=== PATIENT | female | born 1940 | race Caucasian/White ===

== ENCOUNTER 2016-06-16 22:24 | Inpatient (IN) | payer MEDICARE, OTHER ==
--- NOTE | ~2016-06-16 | HP ---
History And Physical [facility] [address] [place]. [address] NAME: REZA MALAGON : 40 STATUS : ADM IN [facility]#: [id number] AGE: 75 ADM/REG DATE : 06/17/16 MR#: [id number] REPORT SERV DATE: 06/17/16 DICTATED BY: EVAN CHRISTOPHER DATE: 06/17/16 REPORT STATUS : Draft TRANSCRIBED BY: MODMark DATE: 06/17/16 DATE OF ADMISSION: 06/17/2016 POINT OF ENTRY: [facility] Emergency Department. PRIMARY CARE PHYSICIAN: Dr. Jerardo Giron. PRIMARY RESAW OPERATOR: Dr. Amos Karimi. CHIEF COMPLAINT: Chest pain. HISTORY OF PRESENT ILLNESS: Ms. Malagon is a 75-year-old female with a very complex previous medical history including COPD, on 2 L by nasal cannula, chronic systolic congestive heart failure, ejection fraction of 35%, chronic kidney stage III, history of aspiration and dysphagia, secondary to head and neck cancer, now with GJ tube who presents here today with acute onset of chest pain. Son who is at bedside provides most of history. Son states that at about 7 p.m. on the evening of 06/16/2016, she developed acute onset of left-sided chest pain. He states that that she grabbed her left chest in a fist-like manner and was also complaining of shortness of breath. When asked to describe the pain, she states it felt like a pressure and someone sitting on her chest. She states that it had reached the intensity of eight out of 10 and they subsequently presented to the emergency department. Son also states a few episodes of upper congestion, cough and sputum production about five to six days ago, but none recently. They deny any recent fevers, night sweats, or chills. Denies any witnessed recent aspiration events. Initial evaluation in the emergency department, the patient was afebrile, but somewhat mildly tachycardic. Chest x-ray is concerning for diffuse right-sided interstitial- appearing infiltrate. Labs notable for a troponin that was unremarkable. EKG is also nonischemic. BNP was within normal limits at 95. She does have evidence of dehydration with a BUN of 86, creatinine 2.14. She was given aspirin, nitroglycerin, and Zofran with some improvement in her chest pain; however, she continues to state that her chest pain is still a six to seven out of 10 at time my examination. The patient was subsequently admitted to the Hospitalist Service for further evaluation and management. At the time of my exam, she endorses chest pain which is diffusely over the precordium as well as some epigastric abdominal pain, but denies any shortness of breath, radiation of her chest pain, fevers, night sweats, chills, cough, sputum production, vomiting, diarrhea, constipation, dysuria, melena, hematochezia, or hemoptysis. Does endorse some mild nausea. REVIEW OF SYSTEMS: Comprehensive review of systems is otherwise negative unless listed in history present illness. History And Physical [address] [place]. [address] NAME: REZA MALAGON : 40 STATUS : ADM IN [facility]#: [id number] AGE: 75 ADM/REG DATE : 06/17/16 MR#: [id number] REPORT SERV DATE: 06/17/16 DICTATED BY: EVAN CHRISTOPHER DATE: 06/17/16 REPORT STATUS : Draft TRANSCRIBED BY: ABDIFATAH DATE: 06/17/16 MEDICAL HISTORY: 1. Chronic systolic congestive heart failure with ejection fraction of 35%. 2. Nonischemic cardiomyopathy. 3. Atrial fibrillation, not on anticoagulation. 4. COPD, on 2 L nasal cannula. 5. Dysphagia and aspiration risk with GJ tube and strict n.p.o. Status. 6. Chronic kidney stage III. 7. Dementia. 8. Hypothyroidism. 9. History of recurrent C. 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 11.AICD pacemaker insertion. 12.Previous history of aspiration pneumonia. 13.Chronic thrombocytopenia. SURGICAL HISTORY: 1. GJ tube with multiple revisions and replacements for malfunction and occlusion. 2. AICD pacemaker. 3. Tubal ligation. ALLERGIES: RELAFEN. HOME MEDICATIONS: 1. DuoNeb one nebulization b.i.d. 2. DuoNeb one nebulization p.r.n. 3. Brovana 15 mcg b.i.d. 4. Aspirin 325 mg daily. 5. Pulmicort 0.5 mg b.i.d. 6. Carvedilol 3.125 mg b.i.d. 7. Pepcid 20 mg b.i.d. 8. Gabapentin 100 mg b.i.d. 9. Isosorbide dinitrate 10 mg b.i.d. 10.Claritin 10 mg daily. 11.Losartan 25 mg daily. 12.Namenda 10 mg b.i.d. 13.Nystatin t.i.d. p.r.n. 14.MiraLAX one packet daily p.r.n. 15.Pravastatin 20 mg at bedtime. 16.Seroquel 12.5 mg daily. 17.Exelon patch 13.3 mg daily. 18.Zoloft 50 mg daily. 19.Byers thyroid 90 mg daily. 20.Spiriva one cap inhalation daily. 21.Demadex 5 mg every 48 hours. 22.Tramadol 50 mg at bedtime. 23.Tramadol 50 mg daily p.r.n. 24.N-acetylcysteine nebulization b.i.d. p.r.n. History And Physical [address] [address] NAME: REZA MALAGON : 40 STATUS : ADM IN PAT#: [id number] AGE: 75 ADM/REG DATE : 06/17/16 MR#: [id number] REPORT SERV DATE: 06/17/16 DICTATED BY: EVAN CHRISTOPHER DATE: 06/17/16 REPORT STATUS : Draft TRANSCRIBED BY: ABDIFATAH DATE: 06/17/16 SOCIAL HISTORY: Denies any tobacco, alcohol, or illicits. FAMILY MEDICAL HISTORY: Mother with diabetes. Father with cancer. Siblings with diabetes. LABS AND IMAGIN. White count is 10.4, hemoglobin is 10.8, hematocrit is 32.9, platelets is 245, INR is 1.2. 2. Sodium is 135, potassium 4.5, chloride 98, carbon dioxide 33, BUN 86, creatinine 2.14, glucose is 86, calcium is 9.5, magnesium 2.3. 3. Troponin less than 0.02. BNP is 95. 4. Lactic acid 1.1, procalcitonin 0.20. 5. Chest x-ray per my review shows some mild cardiomegaly. The left chest appears to be clear. Does have some left greater than right very mild pleural effusions. Right lung abdi show a diffuse interstitial fullness concerning for diffuse infiltrate. 6. EKG per my review shows sinus tachycardia, heart rate of 102. No evidence of any acute ischemic infarction. Does show some left axis deviation and some mild LVH-type changes. PHYSICAL EXAMINATION: VITAL SIGNS: Temperature is 98.0 degrees Fahrenheit, pulse is 94, respirations 16, saturating 96% on 4 L by nasal cannula, blood pressure 130/74, on recheck blood pressure is now 135/65, pulse of 94. GENERAL: Patient is awake, alert, in no acute distress. She is a chronically ill-appearing elderly female. Son is at bedside. HEENT: Atraumatic and normocephalic. Moist mucous membranes. Pupils are equal, round, reactive to light and accommodation. Extraocular eye movements intact. No scleral icterus. NECK: No jugular venous distention. No carotid bruits. CARDIAC: Regular rate and rhythm. Does have a two out of six systolic murmur heard best over left lower sternal border. LUNGS: She has diffuse upper airway transmitted sounds, but I do appreciate some mild inspiratory rhonchi and rales on the right side. Left appears to be clear. ABDOMEN: GJ tube is in place and well-seated. Hypoactive bowel sounds throughout. No rebound, guarding, rigidity. Nontender, nondistended. EXTREMITIES: Warm, perfused. No cyanosis, clubbing, or edema. SKIN: Warm and dry. PSYCH: Affect appropriate. NEURO: Alert and oriented x3. Cranial nerves II through XII grossly intact. Speech is normal. Gait not assessed. ASSESSMENT AND PLAN: Ms. Malagon is a 75-year-old female who presents with the acute onset of chest pain concerning for unstable angina. The patient also found to have evidence of acute kidney injury as well as concern for right-sided pneumonia. PROBLEM LIST: 1. Unstable angina, chest pain. 2. Acute kidney injury on chronic kidney stage III. History And Physical [address] [place]. [address] NAME: REZA MALAGON : 40 STATUS : ADM IN [facility]#: [id number] AGE: 75 ADM/REG DATE : 06/17/16 MR#: [id number] REPORT SERV DATE: 06/17/16 DICTATED BY: EVAN CHRISTOPHER DATE: 06/17/16 REPORT STATUS : Draft TRANSCRIBED BY: ABDIFATAH DATE: 06/17/16 3. Possible right-sided pneumonia. 4. History of dysphagia and aspiration. 5. Chronic systolic congestive heart failure. 6. COPD, on 2 L by nasal cannula. PLAN: 1. Unstable angina and chest pain. The patient and son describe a left-sided chest pain described as pressure and someone sitting on her chest. Son used the classic Hollingsworth sign to describe how she reacted when it first came on. Despite aspirin and nitroglycerin, patient still is having significant chest pain. We will continue patient's home aspirin, beta charissa, and statin. Trend out cardiac enzymes as well as EKG. Given persistent pain, we will order q.6 hours p.r.n. nitroglycerin paste as well as place her on a heparin drip and have a stress test in the morning. We will also consult Cardiology for assistance. 2. Acute kidney injury on chronic kidney stage III. Holding the patient's diuretic and ARB. Provide IV fluid hydration. Checking urine lytes. 3. Possible right-sided pneumonia. Follow up formal radiology read of the chest x-ray. We will schedule her for a CT of the chest without IV contrast to better visualize the right lung abdi, empiric placement on IV Zosyn given history of aspiration and dysphagia. Follow up blood cultures, try to obtain sputum culture as well as urinary antigens. 4. History of COPD, on 2 L by nasal cannula. No evidence of any acute exacerbation at this time. 5. History of aspiration and dysphagia. She is strict nothing by mouth. They deny any recent aspiration events. We will continue patient's tube feeds and free water flushes per her G-tube. 6. DVT prophylaxis. To be on heparin drip. CODE STATUS: The patient wishes to be a limited DNR. She does not wish to have chest compressions or intubation, but is amenable with ICU admission for other advanced life support measures. [facility]/ABDIFATAH Evan Christopher MD / [id number] CC: Abilio Diaz M.D.
--- NOTE | ~2016-06-16 | CN ---
Consultation Report [facility] [address] [place]. [address] NAME: REZA MALAGON : 40 STATUS : ADM IN [facility]#: [id number] AGE: 75 ADM/REG DATE : 06/17/16 MR#: [id number] REPORT SERV DATE: 06/17/16 DICTATED BY: STEVEN JONES DATE: 06/17/16 REPORT STATUS : Draft TRANSCRIBED BY: ABDIFATAH DATE: 06/17/16 CARDIOLOGY CONSULTATION NOTE DATE OF CONSULTATION: 06/17/2016 REASON FOR CONSULTATION: Chest pain of acute onset in a 75-year-old woman with nonischemic cardiomyopathy and multiple medical problems. HISTORY OF PRESENT ILLNESS: Ms. Malagon is a medically complicated 75-year-old woman with a history of oxygen-dependent COPD versus possible interstitial lung disease, chronic systolic heart failure with a baseline ejection fraction of 35% to 40%, stage 3 chronic kidney disease, history of neck cancer complicated by chronic aspiration and dysphagia, and status post percutaneous gastrojejunostomy tube. The patient was admitted early this morning after experiencing the abrupt onset of substernal pressure-type chest pain at around 07:00 p.m. yesterday. The patient describes this as a heavy pressure. She had the onset of cough around the same time, though this has been nonproductive. The patient denies fevers. She reports her cough is nonproductive. She has chronic dyspnea, and reports that her dyspnea is no worse than it usually is. She denies orthopnea. At this time, the patient reports her chest pain has resolved. PAST MEDICAL HISTORY: 1. Chronic systolic heart failure with baseline ejection fraction of 35% to 40%. 2. Nonischemic cardiomyopathy with no significant occlusive coronary artery disease by cardiac catheterization in the year 2011. 3. Paroxysmal atrial fibrillation. 4. Chronic obstructive pulmonary disease, on chronic oxygen 2 L nasal cannula. 5. Chronic dysphagia and aspiration. 6. Stage 3 chronic kidney disease. 7. Dementia. 8. Hypothyroidism. 9. History of recurrent Clostridium difficile colitis. 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 11.Status post AICD. 12.History of multiple previous aspiration pneumonias. 13.Chronic thrombocytopenia. PAST SURGICAL HISTORY: 1. The patient is status post placement of an AICD. 2. GJ tube placement with multiple revisions and replacements due to malfunction. 3. Bilateral tubal ligation. 4. Previous surgery for head and neck cancer. FAMILY HISTORY: Positive for diabetes. The patient's father had cancer, not otherwise Consultation Report [facility] [id number] [place]. [address] NAME: REZA MALAGON : 40 STATUS : ADM IN PAT#: [id number] AGE: 75 ADM/REG DATE : 06/17/16 MR#: [id number] REPORT SERV DATE: 06/17/16 DICTATED BY: STEVEN JONES DATE: 06/17/16 REPORT STATUS : Draft TRANSCRIBED BY: ABDIFATAH DATE: 06/17/16 specified. Otherwise, noncontributory. SOCIAL HISTORY: The patient denies any significant history of tobacco, alcohol, or drug use. ALLERGIES: THE PATIENT HAS DOCUMENTED ALLERGIES TO RELAFEN, WHICH CAUSED HIVES AND ITCHING. HOME MEDICATIONS: 1. DuoNeb inhalers one nebulizer twice daily. 2. Brovana one nebulizer twice daily. 3. Aspirin 325 mg p.o. q.a.m. 4. Pulmicort 0.5 mg inhaled twice daily. 5. Carvedilol 3.125 mg p.o. twice daily. 6. Pepcid 20 mg p.o. twice daily. 7. Gabapentin 100 mg p.o. twice daily. 8. Isosorbide dinitrate 10 mg p.o. twice daily. 9. Claritin 10 mg p.o. daily as needed. 10.Cozaar 25 mg p.o. q.p.m. 11.Namenda 10 mg p.o. twice daily. 12.Nystatin cream apply under breast three times daily as needed. 13.MiraLAX 17 g p.o. daily as needed. 14.Pravastatin 20 mg p.o. at bedtime. 15.Seroquel 12.5 mg p.o. with supper. 16.Exelon patches 13.3 mg topically daily. 17.Sertraline 50 mg p.o. at bedtime. 18.Rodney thyroid supplement 90 mg p.o. daily. 19.Spiriva HandiHaler one capsule inhaled daily. 20.Torsemide 5 mg p.o. q.48 hours. 21.Ultram 50 mg p.o. at bedtime. 22.Ultram 50 mg daily as needed for pain. 23.N-acetylcysteine nebulizers twice daily as needed. REVIEW OF SYSTEMS: A complete 12-system review was performed. This is noncontributory except for the pertinent positives and negatives noted in the history of present illness above. PHYSICAL EXAMINATION: VITAL SIGNS: Temperature is 97.7 degrees Fahrenheit, blood pressure is 130/71 mmHg, heart rate is 100 beats per minute and regular, respirations 20, oxygen saturation is 97% on 2 L nasal cannula. CONSTITUTIONAL: The patient is a chronically ill-appearing, elderly white woman, who is in no acute distress, though she is very mildly tachypneic. EYES: PERRL, EOMI, clear conjunctiva. HEAD/MNT: NCAT with moist mucous membranes and grossly normal hard and soft palate. NECK: Supple with no obvious thyromegaly or lymphadenopathy CARDIOVASCULAR: Somewhat limited exam due to respiratory noise. There is a regular rhythm Consultation Report [address] [place]. [address] NAME: REZA MALAGON : 40 STATUS : ADM IN [facility]#: [id number] AGE: 75 ADM/REG DATE : 06/17/16 MR#: [id number] REPORT SERV DATE: 06/17/16 DICTATED BY: STEVEN JONES DATE: 06/17/16 REPORT STATUS : Draft TRANSCRIBED BY: ABDIFATAH DATE: 06/17/16 with a normal S1 and a physiologically split second heart sound. No significant murmurs, rubs, or gallops are noted. The jugular venous pressure is normal. PULMONARY: There are diffuse rhonchi noted throughout the lung abdi bilaterally. There is no significant expiratory wheezing noted at this time. There is no dullness to percussion. ABDOMINAL: Soft, non-tender, non-distended with no hepatosplenomegaly noted. EXTREMITIES: There is trace chronic edema at the ankles with no clubbing or cyanosis. MUSCULOSKELETAL: Grossly normal strength and range of motion in all extremities INTEGUMENTARY: Skin appears intact with no bruises, wounds or active lesions noted NEURO/PSYC: Alert and oriented x3, with no dysarthria, facial droop or lateralizing weakness noted. 12-LEAD EKG: The 12-lead EKG shows normal sinus rhythm with a rate of 99 beats per minute. There is a slight nonspecific intraventricular conduction delay with no significant ST- segment elevation or depression. There are occasional premature ventricular complexes noted. CHEST X-RAY: The chest x-ray shows diffuse infiltrates versus interstitial lung disease. LABORATORY DATA: A B-type natriuretic peptide is normal at 94. Troponin I is less than 0.02 x2 with a total CK of 43 and an MB fraction of 1.2. CBC shows a white blood cell count of 10.3, hemoglobin 11, hematocrit 33, platelets 115. Sodium is 138, potassium 4.2, chloride is 100, CO2 is 32, BUN is 81 and creatinine is 2.09, calcium 9.5, glucose 86, albumin is 2.7. ASSESSMENT AND PLAN: 1. Chest pain: The patient's symptoms are most probably due to a recent aspiration event. Her BNP is normal, her EKG is unremarkable, and myocardial infarction has been ruled out. The patient has had a cardiac catheterization in the year 2011 showing no significant occlusive coronary artery disease. A myocardial perfusion imaging study has been ordered. This is pending at this time. Assuming the patient's myocardial perfusion imaging study is low risk or shows no significant amount of ischemia, I would recommend no further cardiac workup aside from ongoing management of the patient's chronic systolic heart failure as outlined below. 2. Chronic systolic heart failure: The patient's BNP is normal. She has diffuse rhonchi on pulmonary exam, though it is my opinion this is most likely due to an aspiration event. The patient is receiving IV normal saline volume repletion. This should be continued cautiously, though the patient's severely elevated BUN and creatinine ratio is consistent with intravascular volume depletion. We will resume IV fluids. The patient will continue her home doses of carvedilol and losartan. 3. Code status: The patient is apparently DNR/DNI status, though she is willing to accept any other medical therapy and other life prolonging measures. 4. Status post AICD: The device was last interrogated by remote monitoring on 07/10/2015. Consider repeat interrogation if any device dysfunction is suspected. At the time of the patient's last device interrogation, there was 7.5 years of remaining battery life. Consultation Report [facility] [address] [place]. [address] NAME: REZA MALAGON : 40 STATUS : ADM IN [facility]#: [id number] AGE: 75 ADM/REG DATE : 06/17/16 MR#: [id number] REPORT SERV DATE: 06/17/16 DICTATED BY: STEVEN JONES DATE: 06/17/16 REPORT STATUS : Draft TRANSCRIBED BY: ABDIFATAH DATE: 06/17/16 Interrogation revealed occasional episodes of nonsustained ventricular tachycardia and occasional atrial high rate episodes. Thank you for allowing me to participate in the care of Ms. Malagon. The Cardiology Service will continue to follow the patient during this hospitalization. [facility]/ABDIFATAH Steven Jones MD / [id number] CC: Abilio Ramos M.D.
--- NOTE | ~2016-06-16 | DS ---
Discharge Summary [facility] [address] [place]. [address] NAME: REZA RAGLAND : 40 STATUS : DIS IN PAT#: [id number] AGE: 75 ADM/REG DATE : 06/17/16 MR#: [id number] REPORT SERV DATE: 06/24/16 DICTATED BY: MARS DANIELS DATE: 06/23/16 REPORT STATUS : Draft TRANSCRIBED BY: MODMark DATE: 06/23/16 ADMISSION DATE: 06/17/2016 DISCHARGE DATE: 06/23/2016 CONDITION ON DISCHARGE: Stable. DISPOSITION: Discharged to home with home health nurse, home PT, and OT. ADVICE ON DISCHARGE: To follow up with primary care physician within the next one to two weeks and to follow up with primary electrical appliance servicer, Dr. Amos Karimi, as scheduled before. DIAGNOSES ON DISCHARGE: 1. Aspiration pneumonia - the patient has been treated with intravenous antibiotics for seven days and now the patient is being sent home after aspiration pneumonia has been treated and is on no antibiotics currently. 2. Other complex medical issues in this patient include multiple and many comorbidities and these include the following chronic systolic and diastolic heart failure with an ejection fraction of 35%. 3. Chronic kidney disease, stage III. 4. Chronic obstructive pulmonary disease. 5. Chronic hypoxic respiratory failure for which patient is on 2 L of oxygen per nasal cannula. 6. History of aspiration and dysphagia secondary to head and neck cancer for which patient has had a G-tube placement or a PEG placement for medicines administration and also a J- tube or a G-J tube for nutrition purposes through which she receives tube feeds. The patient does not take anything by mouth for now. 7. Other chronic problems in this patient also include moderate dementia, psychotic features, and extreme anxiety with dementia for which patient takes Seroquel on a p.r.n. basis and sometimes a very low dose of Ativan on a p.r.n. basis administered by her through the G-tube. The family takes care of this patient at home and code status on this patient is a DNR for now. BRIEF HOSPITAL COURSE: The patient is a 75-year-old female patient with multiple medical issues and comorbidities cared for by family at home. The patient is essentially bed-bound and however with help of family she is able to transfer herself on to a wheelchair with the help of a lift. Otherwise, the patient is not independent with activities of daily living at all. She also has a G-tube and a J-tube placed. Family gives her medicines through her gastrostomy tube, and she gets tube feeds through her jejunostomy tube. The patient essentially was admitted because of chest pain and difficulty breathing. Cardiology was consulted. The patient did have mild elevation in troponin, probably because of demand ischemia upon admission. The patient essentially was treated for exacerbation of systolic and diastolic failure with increase in her diuretics but no further cardiology intervention was planned per Cardiology, Dr. Jones. This eventually resolved and it was Discharge Summary [facility] [id number] [place]. [address] NAME: REZA RAGLAND : 40 STATUS : DIS IN PAT#: [id number] AGE: 75 ADM/REG DATE : 06/17/16 MR#: [id number] REPORT SERV DATE: 06/24/16 DICTATED BY: MARS DANIELS DATE: 06/23/16 REPORT STATUS : Draft TRANSCRIBED BY: ABDIFATAH DATE: 06/23/16 deemed that the patient actually had aspiration pneumonia rather than heart failure. From the get go, she has been started on antibiotics to cover for these including IV Flagyl, vancomycin, and cefepime. She has received these antibiotics for seven days now and the patient is breathing much better and her oxygen requirements are down to her baseline of 2 L/minute. The patient continues to have some rattling in her chest/coarse rales in her chest all the time according to family and continues to have this all through. We have encouraged the patient to cough multiple times. The patient does well with chest therapy and is able to bring up some. Family also has a suctioning equipment and device at home with which they are able to suction patient periodically. With this, the patient's fluid in the lungs is kept at bay. The patient also has a history of chronic atrial fibrillation apparently but is not on anticoagulation. She however continues to be on aspirin. 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 Has also had recurrent aspiration pneumonia in the past. Anyhow with all these problems, the patient significantly improved while in the hospital within a week. Her mental status, which was obtunded, and then later on, confused became much better and the patient is alert and oriented within the last two to three days and is able to be communicating very effectively. The patient is also able to transfer herself with some assistance on to a chair and feels much better and hence is being discharged home today. I am discharging her home on the following medications. First of all, she will be resuming her home medications that will include acetylcysteine by nebulizer treatment twice a day p.r.n., Spiriva inhaler once a day, Coreg 3.125 mg p.o. b.i.d., Neurontin 100 mg p.o. b.i.d., nystatin cream, polyethylene glycol powder once a day as needed, Demodex 5 mg p.o. every two days, Exelon patch 13.3 mg patch topically daily, Seroquel 12.5 mg p.o. daily, Ultram 50 mg p.o. once a day daily, pravastatin 20 mg once at bedtime daily, Zoloft 50 mg p.o. with supper, memantine or Namenda 10 mg p.o. b.i.d., aspirin 325 mg p.o. daily, DuoNeb inhaled solution one nebulizer treatment twice daily as needed, Brovana one nebulizer inhalation twice a day, Pulmicort 0.5 mg inhalation twice a day, Pepcid 20 mg p.o. b.i.d., Keno Thyroid 90 mg p.o. daily, Claritin 10 mg p.o. daily, Ativan 0.25-0.5 mg p.o. once a day p.r.n. for anxiety, and Proctozone HC 2.5% cream rectally for hemorrhoids. It is to be noted that all the medications above that I have dictated as p.o. should be given through gastrostomy tube and family is very well aware of this and they have done this for several years now. Relevant labs upon discharge include the following: CBC on 06/23/2016 shows a WBC count of 5.9, hemoglobin 10.2, hematocrit 30.9, and platelet count of 163. Electrolyte profile shows sodium 141, potassium 4.7, BUN 62, and creatinine at baseline of about 1.5. The patient's jejunostomy tube which was displaced has again been replaced. According to the son, this jejunostomy tube gets displaced about every three to four weeks and has to be replaced about three to four weeks. So right at her third week it was displaced again and Interventional Radiology was kind enough to replace it. Other tests are blood cultures that came back negative with no growth in four days. Discharge Summary [facility] [address] [place]. [address] NAME: REZA RAGLAND : 40 STATUS : DIS IN PAT#: [id number] AGE: 75 ADM/REG DATE : 06/17/16 MR#: [id number] REPORT SERV DATE: 06/24/16 DICTATED BY: MARS DANIELS DATE: 06/23/16 REPORT STATUS : Draft TRANSCRIBED BY: ABDIFATAH DATE: 06/23/16 Her most recent chest x-ray that was done on 06/20/2016 shows bibasilar atelectasis and infiltrates that have mildly improved from the previous study. Her BNP is constantly elevated, but her baseline is about 258, and I guess this is where she stays mostly. As mentioned above, the patient also had a chest CT scan without contrast that showed in the beginning atelectasis and consolidation in both posterior lung bases, cardiomegaly, AICD in place. All this probably from the patient's aspiration itself. Upon admission, her urinalysis was sent off with reflex culture that did show large leukocyte esterase, but as the patient has been treated with antibiotics, this should have cleared up. Right now her urine is pretty clear. As mentioned above, the patient did have a troponin test done too but that came back normal eventually and was less than 0.02 with normal CPK and normal CK-MB. Hence, the patient is being sent home in stable condition with above medications and diagnosis and I have spent about 40 minute in summarizing this discharge including face-to- face encounter. JOHANN/ABDIFATAH Mars Daniels M.D. / [id number] CC: Abilio Ramos M.D.
[~2016-06-16 22:24] MED LIST: ACETYLCYSTEINE 20% INH; ACIPHEX PO; ANTIBIOTIC; APRES10B PEG; APRES10B PO; ARMOUR THYRO30 MG PEG; ARMOUR THYRO30 MG PO; ARMOUR THYRO60 MG PO; ARMOUR THYRO90 MG PEG; ASA5GR PEG; ASAB PEG; ASAB PO; ASAEC PEG; AUG875 PO; AUGMENTIN200 MG/5 M PEG; BACTROINT; BACTROINT TOP; BACTRONASA NAS; BARRIER CREAM TOP; BP MED #1; BP MEDICATION; BROVANA15 MCG INH; CALMOSEPTINE O2.5 OZ TOP; CAT1 PO; CLARIT10 PEG; CLEOCIN300 MG PEG; COREG12 PEG; COREG12 PO; COREG3 PEG; COREG3 PO; COREG6 PO; CORTEF20 MG PEG; CORTEF5 PEG; CORTEF5 PO; COZ25 PEG; COZ25 PO; COZ50 PO; CYANO1000T PEG; D.O.S.100 MG; DEMA10T PEG; DEMA10T PO; DEMADEX5 MG PEG; DUONEB INH; DURA25 TOP; ELIQUIS 2.5 MG2.5 MG PEG; ELIQUIS 2.5 MG2.5 MG PO; ELIQUIS 5 MG TAB5 MG PO; EXELON1 EACH TOP; EXELON4.6T TOP; FLAG500TAB PO; FLORASTOR250 MG PEG; GGEXPUD PEG; GGEXPUD PO; ISORDIL10 PEG; ISORDIL10 PO; K250 PO; K500 PO; LEVAQUIN5T PO; LEVAQUIN750 MG PEG; LEVAQUIN750 MG PO; LISINOPRIL; LORTABLIQ PEG; LOTRIMIN AF12 TOP; MACRO50B PEG; MACRO50B PO; MACROBID PO; MEG40 PO; MIRALAX POWDER1 PKT PEG; MIRALAX POWDER1 PKT PO; MUCINEX LIQUID PEG; MUCO20%4ML INH; MUCOMYST 20% INH; MYCOSCROI TOP; NAMENDA10 MG PEG; NAMENDA10 MG PO; NAMENXR28 PO; NEO-OINT; NEO-OINT TOP; NEUR100 PEG; NEXIUM40 MG PEG; NEXIUM40 MG PO; NEXIUM40 PO; NYSTATPOW TOP; NYSTOP100000 MG TOP; P10; P10 PEG; PEP20 PEG; PR25 PEG; PRAVAC PEG; PREPARATIO H PR; PRIN2.5 PEG; PULRESP.5 INH; REG5 PO; SEROQUEL25 PEG; SEROQUEL25 PO; SPIRIVA INH; STERAPRED5 MG PO; SYMBICORT 160/41 INH INH; TESS PO; THYROID MED; ULTRAM50 PEG; ULTRAM50 PO; VANC125UDL PO; VANCOCIN HCL250 MG PEG; VANCOCIN HCL250 MG PO; VIT B 12; VIT D 3 PO; VITAMIN B-121000 MC1 SL; WELCHOL 625 MG625 MG PEG; WELCHOL 625 MG625 MG PO; ZESTRIL2.5 MG PEG; ZOFRAN PO; ZOFRAN4 PEG; ZOFRAN4 PO; ZOL50 PEG; ZOLOFT25 MG PEG; [UNRECOGNIZED DRUG - OTHER]; [UNRECOGNIZED DRUG - OTHER] MT; [UNRECOGNIZED DRUG - OTHER] PO; [UNRECOGNIZED DRUG - OTHER] PO; [UNRECOGNIZED DRUG - SUPPLY] TOP
[2016-06-16 23:37] LABS: BASOPHILS 0.2 %; BASOPHILS ABSOLUTE 0.02 10/3/uL (0.0-0.16); EOSINOPHILS 1.1 %; EOSINOPHILS ABSOLUTE 0.11 10/3/uL (0.0-0.53); IMMATURE GRANULOCYTES 0.3 %; IMMATURE GRANULOCYTES ABSOLUTE 0.03 10/3/uL (0.0-0.11); LYMPHOCYTES 20.8 %; LYMPHOCYTES ABSOLUTE 2.17 10/3/uL (0.67-4.30); MEAN CORPUS HGB CONC 32.8 g/dL (32.0-36.0); MEAN CORPUSCULAR HEMOGLOB 29.4 pg (26.0-34.0); MONOCYTES 7.3 %; MONOCYTES ABSOLUTE 0.76 10/3/uL (0.21-1.20); NEUTROPHILS 70.3 %; NEUTROPHILS ABSOLUTE 7.34 10/3/uL (2.02-8.40); RBC DISTRIBUTION WIDTH 14.9 % (12.0-16.0)
[2016-06-16 23:38] LABS: ER CBC TAT 0 Hrs 10 Mins; HEMATOCRIT 32.9 % (36.0-48.0); HEMOGLOBIN 10.8 g/dL (12.0-16.0); MANUAL DIFF NO %; MEAN CORPUSCULAR VOLUME 89.6 fL (80-100); PLATELET COUNT 245 10/3/uL (150-400); RED CELL COUNT 3.67 10/6/uL (4.0-5.6); WHITE BLOOD CELLS 10.4 10/3/uL (4.5-10.5)
[2016-06-16 23:41] LABS: INTERNATIONAL NORMAL RATI 1.2 UNITS (-); PARTIAL THROMBO TIME 34.3 SEC (22.5-37.2); PROTIME (NOT ORD) 15.4 SEC (12.0-14.5)
[2016-06-16 23:49] LABS: CHEST PAIN PROFILE TAT 0 Hrs 21 Mins; POTASSIUM, SERUM 4.5 MMOL/L (3.5-5.3); TROPONIN I <0.02 NG/ML (<0.05)
[2016-06-16 23:52] LABS: BUN (BLOOD UREA NITROGEN) 86 MG/DL (6-23); CALCIUM, SERUM 9.5 MG/DL (8.5-10.4); CHLORIDE, SERUM 98 MMOL/L (96-112); CO2 (CARBON DIOXIDE) 33 MMOL/L (24-34); CREATININE 2.14 MG/DL (0.55-1.02); GFR AFRICAN AMERICAN 25 ML/MIN (>=60); GFR NON AFRICAN AMERICAN 22 ML/MIN (>=60); GLUCOSE, SERUM 86 MG/DL (60-99); SODIUM, SERUM 135 MMOL/L (135-148)
[2016-06-16 23:55] LABS: EOSINOPHILS 1 %; ER DIFF TAT 0 Hrs 27 Mins; LYMPHOCYTES 17 %; LYMPHOCYTES ABSOLUTE (CALC) 1.77 10/3/uL (0.67-4.30); MONOCYTES 4 %; MONOCYTES ABSOLUTE (CALC) 0.42 10/3/uL (0.21-1.20); NEUTROPHILS ABSOLUTE (CALC) 8.11 10/3/uL (2.02-8.40); SEGMENTED NEUTROPHIL (0) 78 %; TOTAL NUCLEATED CELLS 100
[2016-06-16 23:56] LABS: PLATELET ESTIMATE ADQ (ADEQUATE)
[2016-06-17 04:21] LABS: ASCORBIC ACID (UR NOT ORDER) 40 (NEG); BILIRUBIN, URINE NEGATIVE (NEG); ER URINALYSIS TAT 0 Hrs 00 Mins; KETONE, URINE NEGATIVE (NEG); LEUKOCYTE ESTERASE(NOT OR LARGE (NEG); NITRITE (URINE) NEG (NEG); WBC (NOT ORDERED) (RFLEX) 167 (0-5)
[2016-06-17 06:50] LABS: BASOPHILS 0.1 %; BASOPHILS ABSOLUTE 0.01 10/3/uL (0.0-0.16); EOSINOPHILS 1.6 %; EOSINOPHILS ABSOLUTE 0.16 10/3/uL (0.0-0.53); HEMATOCRIT 33.4 % (36.0-48.0); HEMOGLOBIN 10.8 g/dL (12.0-16.0); IMMATURE GRANULOCYTES 0.4 %; IMMATURE GRANULOCYTES ABSOLUTE 0.04 10/3/uL (0.0-0.11); LYMPHOCYTES 20.7 %; LYMPHOCYTES ABSOLUTE 2.13 10/3/uL (0.67-4.30); MEAN CORPUS HGB CONC 32.3 g/dL (32.0-36.0); MEAN CORPUSCULAR HEMOGLOB 29.2 pg (26.0-34.0); MEAN CORPUSCULAR VOLUME 90.3 fL (80-100); MEAN PLATELET VOLUME 10.5 fL (9.2-13.0); MONOCYTES 8.6 %; MONOCYTES ABSOLUTE 0.89 10/3/uL (0.21-1.20); NEUTROPHILS 68.6 %; NEUTROPHILS ABSOLUTE 7.06 10/3/uL (2.02-8.40); RBC DISTRIBUTION WIDTH 14.9 % (12.0-16.0); WHITE BLOOD CELLS 10.3 10/3/uL (4.5-10.5)
[2016-06-17 06:56] LABS: MANUAL DIFF NO %; PLATELET COUNT 115 10/3/uL (150-400)
[2016-06-17 07:03] LABS: ALBUMIN 2.7 G/DL (3.5-5.0); BUN (BLOOD UREA NITROGEN) 81 MG/DL (6-23); CALCIUM, SERUM 9.5 MG/DL (8.5-10.4); CHLORIDE, SERUM 100 MMOL/L (96-112); CO2 (CARBON DIOXIDE) 32 MMOL/L (24-34); CREATININE 2.09 MG/DL (0.55-1.02); GFR AFRICAN AMERICAN 26 ML/MIN (>=60); GFR NON AFRICAN AMERICAN 23 ML/MIN (>=60); GLUCOSE, SERUM 86 MG/DL (60-99); PHOSPHORUS, SERUM 3.5 MG/DL (2.5-4.5); POTASSIUM, SERUM 4.2 MMOL/L (3.5-5.3); SODIUM, SERUM 138 MMOL/L (135-148)
[2016-06-17 07:05] LABS: CK-MB 1.2 NG/ML; CPK 43 U/L (0-200); TROPONIN I <0.02 NG/ML (<0.05)
[2016-06-17 14:12] LABS: CREATININE, URINE 28.7 MG/DL
[2016-06-17 15:37] LABS: TROPONIN I <0.02 NG/ML (<0.05)
[2016-06-17 15:42] LABS: CK-MB 1.2 NG/ML; CPK 83 U/L (0-200)
[2016-06-17 23:32] LABS: CK-MB 1.2 NG/ML; CPK 39 U/L (0-200); TROPONIN I <0.02 NG/ML (<0.05)
[2016-06-18 09:16] LABS: BASOPHILS 0.1 %; BASOPHILS ABSOLUTE 0.01 10/3/uL (0.0-0.16); EOSINOPHILS 2.5 %; EOSINOPHILS ABSOLUTE 0.17 10/3/uL (0.0-0.53); IMMATURE GRANULOCYTES 0.3 %; IMMATURE GRANULOCYTES ABSOLUTE 0.02 10/3/uL (0.0-0.11); LYMPHOCYTES 28.2 %; LYMPHOCYTES ABSOLUTE 1.94 10/3/uL (0.67-4.30); MEAN CORPUS HGB CONC 32.7 g/dL (32.0-36.0); MEAN CORPUSCULAR HEMOGLOB 29.7 pg (26.0-34.0); MEAN CORPUSCULAR VOLUME 90.9 fL (80-100); MEAN PLATELET VOLUME 10.4 fL (9.2-13.0); MONOCYTES ABSOLUTE 0.69 10/3/uL (0.21-1.20); NEUTROPHILS 58.9 %; NEUTROPHILS ABSOLUTE 4.04 10/3/uL (2.02-8.40); PLATELET COUNT 145 10/3/uL (150-400); RBC DISTRIBUTION WIDTH 14.8 % (12.0-16.0); WHITE BLOOD CELLS 6.9 10/3/uL (4.5-10.5)
[2016-06-18 09:17] LABS: HEMOGLOBIN 8.5 g/dL (12.0-16.0); MANUAL DIFF NO %; RED CELL COUNT 2.86 10/6/uL (4.0-5.6)
[2016-06-18 09:35] LABS: CHLORIDE, SERUM 110 MMOL/L (96-112); GFR AFRICAN AMERICAN 34 ML/MIN (>=60); GFR NON AFRICAN AMERICAN 29 ML/MIN (>=60); GLUCOSE, SERUM 86 MG/DL (60-99); PHOSPHORUS, SERUM 3.2 MG/DL (2.5-4.5); POTASSIUM, SERUM 4.9 MMOL/L (3.5-5.3); SODIUM, SERUM 142 MMOL/L (135-148)
[2016-06-18 09:37] LABS: ALBUMIN 2.1 G/DL (3.5-5.0); BUN (BLOOD UREA NITROGEN) 66 MG/DL (6-23); CALCIUM, SERUM 8.5 MG/DL (8.5-10.4); CO2 (CARBON DIOXIDE) 26 MMOL/L (24-34)
[2016-06-19 06:36] LABS: BASOPHILS 0.2 %; BASOPHILS ABSOLUTE 0.01 10/3/uL (0.0-0.16); EOSINOPHILS 2.5 %; EOSINOPHILS ABSOLUTE 0.15 10/3/uL (0.0-0.53); HEMATOCRIT 26.2 % (36.0-48.0); HEMOGLOBIN 8.7 g/dL (12.0-16.0); LYMPHOCYTES 26.4 %; LYMPHOCYTES ABSOLUTE 1.58 10/3/uL (0.67-4.30); MEAN CORPUS HGB CONC 33.2 g/dL (32.0-36.0); MEAN CORPUSCULAR VOLUME 90.3 fL (80-100); MEAN PLATELET VOLUME 10.8 fL (9.2-13.0); MONOCYTES 8.8 %; MONOCYTES ABSOLUTE 0.53 10/3/uL (0.21-1.20); NEUTROPHILS 62.1 %; NEUTROPHILS ABSOLUTE 3.72 10/3/uL (2.02-8.40); PLATELET COUNT 136 10/3/uL (150-400); RBC DISTRIBUTION WIDTH 14.9 % (12.0-16.0)
[2016-06-19 06:42] LABS: CALCIUM, SERUM 8.6 MG/DL (8.5-10.4); CHLORIDE, SERUM 111 MMOL/L (96-112); CO2 (CARBON DIOXIDE) 26 MMOL/L (24-34); GFR AFRICAN AMERICAN 36 ML/MIN (>=60); GFR NON AFRICAN AMERICAN 31 ML/MIN (>=60); MANUAL DIFF NO %; SODIUM, SERUM 143 MMOL/L (135-148)
[2016-06-19 06:43] LABS: BUN (BLOOD UREA NITROGEN) 60 MG/DL (6-23); GLUCOSE, SERUM 146 MG/DL (60-99); POTASSIUM, SERUM 5.1 MMOL/L (3.5-5.3)
[2016-06-20 06:36] LABS: BASOPHILS 0.1 %; BASOPHILS ABSOLUTE 0.01 10/3/uL (0.0-0.16); EOSINOPHILS 1.9 %; EOSINOPHILS ABSOLUTE 0.13 10/3/uL (0.0-0.53); HEMATOCRIT 26.2 % (36.0-48.0); HEMOGLOBIN 8.8 g/dL (12.0-16.0); IMMATURE GRANULOCYTES 0.3 %; IMMATURE GRANULOCYTES ABSOLUTE 0.02 10/3/uL (0.0-0.11); LYMPHOCYTES 29.8 %; LYMPHOCYTES ABSOLUTE 2.05 10/3/uL (0.67-4.30); MEAN CORPUS HGB CONC 33.6 g/dL (32.0-36.0); MEAN CORPUSCULAR HEMOGLOB 29.5 pg (26.0-34.0); MEAN CORPUSCULAR VOLUME 87.9 fL (80-100); MEAN PLATELET VOLUME 10.6 fL (9.2-13.0); MONOCYTES 9.5 %; MONOCYTES ABSOLUTE 0.65 10/3/uL (0.21-1.20); NEUTROPHILS 58.4 %; NEUTROPHILS ABSOLUTE 4.01 10/3/uL (2.02-8.40); PLATELET COUNT 151 10/3/uL (150-400); RBC DISTRIBUTION WIDTH 15.1 % (12.0-16.0); RED CELL COUNT 2.98 10/6/uL (4.0-5.6); WHITE BLOOD CELLS 6.9 10/3/uL (4.5-10.5)
[2016-06-20 06:38] LABS: MANUAL DIFF NO %
[2016-06-20 06:49] LABS: CALCIUM, SERUM 8.4 MG/DL (8.5-10.4); CHLORIDE, SERUM 105 MMOL/L (96-112); CO2 (CARBON DIOXIDE) 28 MMOL/L (24-34); CREATININE 1.56 MG/DL (0.55-1.02); GFR AFRICAN AMERICAN 37 ML/MIN (>=60); GFR NON AFRICAN AMERICAN 32 ML/MIN (>=60); GLUCOSE, SERUM 121 MG/DL (60-99); POTASSIUM, SERUM 4.5 MMOL/L (3.5-5.3); SODIUM, SERUM 138 MMOL/L (135-148)
[2016-06-20 06:50] LABS: BUN (BLOOD UREA NITROGEN) 55 MG/DL (6-23)
[2016-06-21 05:33] LABS: BUN (BLOOD UREA NITROGEN) 53 MG/DL (6-23); CALCIUM, SERUM 9.3 MG/DL (8.5-10.4); CHLORIDE, SERUM 107 MMOL/L (96-112); CO2 (CARBON DIOXIDE) 25 MMOL/L (24-34); GFR AFRICAN AMERICAN 39 ML/MIN (>=60); GFR NON AFRICAN AMERICAN 34 ML/MIN (>=60); GLUCOSE, SERUM 112 MG/DL (60-99); POTASSIUM, SERUM 4.5 MMOL/L (3.5-5.3); SODIUM, SERUM 141 MMOL/L (135-148)
[2016-06-22 04:33] LABS: BASOPHILS 0.2 %; BASOPHILS ABSOLUTE 0.01 10/3/uL (0.0-0.16); EOSINOPHILS 2.9 %; EOSINOPHILS ABSOLUTE 0.19 10/3/uL (0.0-0.53); HEMOGLOBIN 9.8 g/dL (12.0-16.0); IMMATURE GRANULOCYTES 0.3 %; IMMATURE GRANULOCYTES ABSOLUTE 0.02 10/3/uL (0.0-0.11); LYMPHOCYTES ABSOLUTE 1.72 10/3/uL (0.67-4.30); MEAN CORPUS HGB CONC 33.3 g/dL (32.0-36.0); MEAN CORPUSCULAR HEMOGLOB 29.8 pg (26.0-34.0); MEAN CORPUSCULAR VOLUME 89.4 fL (80-100); MEAN PLATELET VOLUME 10.3 fL (9.2-13.0); MONOCYTES 11.6 %; MONOCYTES ABSOLUTE 0.77 10/3/uL (0.21-1.20); PLATELET COUNT 158 10/3/uL (150-400); RBC DISTRIBUTION WIDTH 15.4 % (12.0-16.0); RED CELL COUNT 3.29 10/6/uL (4.0-5.6); WHITE BLOOD CELLS 6.6 10/3/uL (4.5-10.5)
[2016-06-22 04:40] LABS: HEMATOCRIT 29.4 % (36.0-48.0); MANUAL DIFF NO %
[2016-06-22 04:47] LABS: BUN (BLOOD UREA NITROGEN) 53 MG/DL (6-23); CALCIUM, SERUM 8.8 MG/DL (8.5-10.4); CHLORIDE, SERUM 107 MMOL/L (96-112); CO2 (CARBON DIOXIDE) 26 MMOL/L (24-34); GFR AFRICAN AMERICAN 39 ML/MIN (>=60); GFR NON AFRICAN AMERICAN 34 ML/MIN (>=60); GLUCOSE, SERUM 121 MG/DL (60-99); POTASSIUM, SERUM 4.6 MMOL/L (3.5-5.3); SODIUM, SERUM 139 MMOL/L (135-148)
[2016-06-23 07:03] LABS: BASOPHILS 0.3 %; BASOPHILS ABSOLUTE 0.02 10/3/uL (0.0-0.16); EOSINOPHILS 4.7 %; EOSINOPHILS ABSOLUTE 0.28 10/3/uL (0.0-0.53); HEMATOCRIT 30.9 % (36.0-48.0); HEMOGLOBIN 10.2 g/dL (12.0-16.0); IMMATURE GRANULOCYTES 0.5 %; IMMATURE GRANULOCYTES ABSOLUTE 0.03 10/3/uL (0.0-0.11); LYMPHOCYTES ABSOLUTE 1.66 10/3/uL (0.67-4.30); MEAN CORPUSCULAR VOLUME 90.9 fL (80-100); MEAN PLATELET VOLUME 9.9 fL (9.2-13.0); MONOCYTES 11.3 %; MONOCYTES ABSOLUTE 0.67 10/3/uL (0.21-1.20); NEUTROPHILS 55.2 %; NEUTROPHILS ABSOLUTE 3.27 10/3/uL (2.02-8.40); PLATELET COUNT 163 10/3/uL (150-400); RBC DISTRIBUTION WIDTH 15.6 % (12.0-16.0); WHITE BLOOD CELLS 5.9 10/3/uL (4.5-10.5)
[2016-06-23 07:10] LABS: MANUAL DIFF NO %
[2016-06-23 07:16] LABS: BUN (BLOOD UREA NITROGEN) 62 MG/DL (6-23); CHLORIDE, SERUM 107 MMOL/L (96-112); CO2 (CARBON DIOXIDE) 28 MMOL/L (24-34); CREATININE 1.53 MG/DL (0.55-1.02); GFR AFRICAN AMERICAN 38 ML/MIN (>=60); GFR NON AFRICAN AMERICAN 33 ML/MIN (>=60); GLUCOSE, SERUM 134 MG/DL (60-99); POTASSIUM, SERUM 4.7 MMOL/L (3.5-5.3); SODIUM, SERUM 141 MMOL/L (135-148)
[2016-06-23] MEDS ORDERED: ATV1 PEG (16:29)
[2016-06-23] MEDS ORDERED: PROCTOZONE HC 2.5% PR (16:31)
[2016-08-02] MEDS ORDERED: ISORDIL10 PEG (18:25)
[2016-08-02] MEDS ORDERED: COZ25 PEG (18:25)
[2016-08-02] MEDS ORDERED: PR12.5 PEG (18:26)
[2016-08-02] MEDS ORDERED: BACTROINT TOP (18:26)
[2016-08-08] MEDS ORDERED: THY60 PEG (09:32)
[2016-08-08] MEDS ORDERED: P20 PEG (09:34)
== END 2016-06-23 17:52 | disposition home health service (06) | DRG 178 ==
LOC: ER 22:24 → 7NO 06-17 03:59
PROVIDERS: Internal Medicine; Nurse Practitioner Acute Care
PROC: 0D2DXUZ Change Feeding Device in Lower Intestinal Tract, External Approach (ICD-10-PCS; principal; 2016-06-20)
DX: J69.0 Pneumonitis due to inhalation of food and vomit (principal); J96.11 Chronic respiratory failure with hypoxia; I47.2 Ventricular tachycardia; D69.6 Thrombocytopenia, unspecified; I13.0 Hypertensive heart and chronic kidney disease with heart failure and stage 1 through stage 4 chronic kidney disease, or unspecified chronic kidney disease; I50.42 Chronic combined systolic (congestive) and diastolic (congestive) heart failure; N18.3 Chronic kidney disease, stage 3 (moderate); F03.90 Unspecified dementia, unspecified severity, without behavioral disturbance, psychotic disturbance, mood disturbance, and anxiety; I24.8 Other forms of acute ischemic heart disease; I42.9 Cardiomyopathy, unspecified; K94.23 Gastrostomy malfunction; J44.9 Chronic obstructive pulmonary disease, unspecified; R13.10 Dysphagia, unspecified; Z99.81 Dependence on supplemental oxygen; F41.9 Anxiety disorder, unspecified; Z74.01 Bed confinement status; I48.2 Chronic atrial fibrillation; Y83.3 Surgical operation with formation of external stoma as the cause of abnormal reaction of the patient, or of later complication, without mention of misadventure at the time of the procedure; Z66 Do not resuscitate; Z79.82 Long term (current) use of aspirin; Z85.89 Personal history of malignant neoplasm of other organs and systems; Z95.810 Presence of automatic (implantable) cardiac defibrillator
CPT/HCPCS: 49452; 71010; 71250; 78452; 80048; 80069; 80202; 81001; 82550; 82553; 82570; 83605; 83735; 83880; 83935; 84145; 84300; 84484; 85025; 85610; 85730; 87040; 87070; 87077; 87086; 87186; 87205; 87449; 93005; 93017; 94640; 96374; 99285; A9270-GY; A9502; C1769; C8929; J0153; J0692; J2405; J2543; J3370; J3486; Q9957; Q9967

== ENCOUNTER 2016-07-02 19:56 | Inpatient (IN) | payer MEDICARE, OTHER ==
--- NOTE | ~2016-07-02 | DS ---
Discharge Summary [facility] [address] [place]. [address] NAME: REZA RAGLAND : 40 STATUS : DIS IN PAT#: [id number] AGE: 75 ADM/REG DATE : 07/03/16 MR#: [id number] REPORT SERV DATE: 07/11/16 DICTATED BY: NIKOS GR DATE: 07/10/16 REPORT STATUS : Draft TRANSCRIBED BY: ABDIFATAH DATE: 07/10/16 ADMISSION DATE: 07/03/2016 DISCHARGE DATE: 07/10/2016 DISCHARGE DIAGNOSES: 1. Acute on chronic kidney disease stage 3. 2. Recurrent aspiration. 3. Debility. 4. Recurrent J tube obstruction, status post replacement by IR. 5. Colonization extended-spectrum beta-lactamase Klebsiella pneumonia. 6. Elevated ESR. 7. Chronic systolic heart failure. 8. Chronic obstructive pulmonary disease without exacerbation. 9. Chronic hypoxic respiratory failure, 2 L nasal cannula at home. 10.Failure to thrive, cachexia. 11.Dementia. 12.Chronic atrial fibrillation, rate controlled on aspirin. 13.Vitamin D deficiency. 14.Status post AICD. 15.Hypertension. 16.Hypothyroidism. 17.Anemia of chronic disease. DISCHARGE MEDICATIONS: Include: 1. Aspirin 325 mg per PEG daily. 2. Carvedilol 3.125 per PEG b.i.d. 3. Vitamin D 800 units p.o. daily. 4. Pepcid 20 mg per PEG b.i.d. 5. Ferrous sulfate 180 mg per PEG daily. 6. Neurontin 100 mg per PEG b.i.d. 7. Namenda 10 mg per PEG b.i.d. 8. Pravachol 20 mg per PEG at bedtime. 9. Seroquel 12.5 mg per PEG supper. 10.Exelon 13.3 patch daily. 11.Florastor cap p.o. daily. 12.Zoloft 50 mg per PEG with supper. 13.Thyroid 90 mcg per PEG daily. 14.Spiriva cap inhaled daily. 15.Ultram 50 mg per PEG at bedtime. 16.Ultram 50 mg PEG daily p.r.n. 17.Brovana 15 mcg neb inhaled b.i.d. 18.Pulmicort 0.5 mg inhaled b.i.d. 19.Claritin 10 mg per PEG daily p.r.n. 20.Ativan 0.25 per PEG daily. 21.Mycostatin cream applied topically t.i.d. p.r.n. 22.Zofran sublingual every 4 p.r.n. Discharge Summary [facility] [address] [place]. [address] NAME: REZA RAGLAND : 40 STATUS : DIS IN PAT#: [id number] AGE: 75 ADM/REG DATE : 07/03/16 MR#: [id number] REPORT SERV DATE: 07/11/16 DICTATED BY: NIKOS GR DATE: 07/10/16 REPORT STATUS : Draft TRANSCRIBED BY: ABDIFATAH DATE: 07/10/16 23.MiraLAX 17 g packet daily p.r.n. 24.Mucomyst 20% neb inhaled b.i.d. p.r.n. 25.Demadex 5 mg per PEG q.48 hours. 26.DuoNeb inhaled b.i.d. 27.DuoNeb inhaled b.i.d. p.r.n. 28.Proctozone [place] p.r.n. 29.Prednisone 20 mg p.o. daily. DISPOSITION AND FOLLOWUP: The patient medically stable for discharge. Follow up with primary care physician in one week. Consider Rheumatology followup as an outpatient for further evaluation of elevated ESR. HISTORY AND PHYSICAL: Per initial assessment. DISCHARGE VITALS: Temperature 98.2, heart rate 91, blood pressure 120/82, respiratory rate 16, O2 saturation 94 on 2 L. DISCHARGE LABS: WBC of 5.4, hemoglobin 9.3, hematocrit 30, platelets 188. Sodium 138, potassium 4.4, chloride 103, bicarb 31, BUN 66, creatinine 1.53, magnesium 2.1, 25- hydroxyvitamin D level 23. Sedimentation rate 120, and procalcitonin 0.05. HOSPITAL COURSE: A 75-year-old woman with past medical history as described above comes in to the hospital for increasing debilitation, found to have acute renal failure. Of note, the patient has history of C diff. Initially, she was having some diarrhea. No evidence to suggest C diff during the course of the hospitalization. The patient has history of positive CYN. ESR was checked, which was increased, question whether underlying autoimmune disorder as cause of the patient's gradual deterioration. The patient was placed on prednisone and responded well. We will continue low-dose steroid at discharge. Follow up with Rheumatology for further management as an outpatient. During the hospitalization, question of urinary tract infection. Infectious Disease was consulted. The patient initially placed on IV antibiotics once Infectious Disease evaluated. More details per consult note. In short, no evidence to suggest bacterial infection. Antibiotics were discontinued. The patient was found to have recurrent J tube obstruction. The patient did have replaced by IR on 07/09/2016. Tube feeds were continued without any difficulties. Renal function on discharge at baseline. The patient was to continue all her other home medications on admission and will continue as described above. The patient will be instructed to follow up with primary care physician in one week. Plan was discussed with family, who were in agreement with management. Total time for discharge planning, 35 minutes. DICTATED BY: MD CHERISE Camacho/ABDIFATAH Discharge Summary [address] [address] NAME: REZA RAGLAND : 40 STATUS : DIS IN PAT#: [id number] AGE: 75 ADM/REG DATE : 07/03/16 MR#: [id number] REPORT SERV DATE: 07/11/16 DICTATED BY: NIKOS GR DATE: 07/10/16 REPORT STATUS : Draft TRANSCRIBED BY: ABDIFATAH DATE: 07/10/16 Alison Cintron MD / [id number] CC: MD Jerardo Camacho M.D.
--- NOTE | ~2016-07-02 | HP ---
History And Physical [address] [place]. [address] NAME: REZA RAGLAND : 40 STATUS : ADM Murali PAT#: [id number] AGE: 75 ADM/REG DATE : 07/02/16 MR#: [id number] REPORT SERV DATE: 07/03/16 DICTATED BY: MALIHA MORRISON DATE: 07/02/16 REPORT STATUS : Draft TRANSCRIBED BY: MODL DATE: 07/02/16 DATE OF ADMISSION: 07/02/2016 CHIEF COMPLAINT: A 75-year-old female presenting with increasing debilitation, the son stating "she is going downhill fast". HISTORY OF PRESENT ILLNESS: The patient's history was obtained through careful interview with the patient and son coupled with review of [facility] medical records. The patient is chronically debilitated from COPD, congestive heart failure, chronic aspiration pneumonia, and dementia. She has become gradually more and more debilitated to the point where she is dependent for activities of daily living. Gets around in a wheelchair and needs a PEG tube for chronic Nutrition. It is in this context the patient has had worsening debilitation and the son feeling "like she is going downhill fast". She has had increasing weakness. She has become even more dependent for all activities of daily living. Of particular concern is that the patient has been suffering from nausea, occasional vomiting and diarrhea over the last several weeks. Two days ago, she had an aspiration event from vomiting, and then on the day of admission she also had another witnessed aspiration event from vomiting and there was concern that these repeated episodes are related to her increasing debilitation. She is constantly "congested in the throat," but does not cough. She has had intermittent chills and then feeling very hot, but no measured fevers. She has stable chronic shortness of breath, not worsened by recent events. Her pain complaints have been diffuse abdominal discomfort, a cramping quality, 7/10 severity. She also describes a headache intermittently behind her right eye, aching quality. REVIEW OF SYSTEMS: Otherwise, a 14-point review of systems was obtained and was negative. PAST MEDICAL HISTORY: 1. COPD on chronic 3 L nasal cannula oxygen. 2. Systolic congestive heart failure. Ejection fraction 35%. 3. Aspiration pneumonia. 4. AICD/pacer. 5. Atrial fibrillation. History And Physical [address] [place]. [address] NAME: REZA RAGLAND : 40 STATUS : ADM Murali PAT#: [id number] AGE: 75 ADM/REG DATE : 07/02/16 MR#: [id number] REPORT SERV DATE: 07/03/16 DICTATED BY: MALIHA MORRISON DATE: 07/02/16 REPORT STATUS : Draft TRANSCRIBED BY: ABDIFATAH DATE: 07/02/16 6. Dementia. 7. 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 8. Hypothyroidism. 9. Dysphagia with chronic feeding tube. 10.MRSA bacteremia. 11.Urinary tract infection. 12.ASD with shunt in 2011. 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 Kearney. 14.CYN positive 1-320 titer with speckled pattern with history of vasculitis? 15.Parotitis. 16.Cellulitis of the abdominal wall. 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 18.Chronic kidney disease, stage 3. Baseline creatinine of 1.5 to 1.6. 19.Mediastinal lymphadenopathy. PAST SURGICAL HISTORY: 1. AICD/pacer placement. 2. Feeding tube. 3. Tubal ligation. 4. Squamous cell carcinoma of the tonsil with surgery. ALLERGIES: NABUMETONE. SOCIAL HISTORY: No tobacco abuse. No alcohol abuse. Retired from working in a school cafeteria. , suffering from debilitation from prostate cancer. A son and daughter live nearby and check on her daily. She gets around in a wheelchair. She is dependent for activities of daily living. She is seen by home health care. FAMILY HISTORY: Father with colon cancer. Son, mother, and daughter with diabetes. CURRENT MEDICATIONS: 1. Duo nebulizers. 2. Brovana inhale twice a day. 3. Aspirin 325 mg daily. 4. Pulmicort inhale daily. 5. Coreg 3.125 mg twice a day. 6. Pepcid 20 mg twice a day. 7. Neurontin 100 mg twice a day. 8. Claritin 10 mg daily. 9. Ativan 0.25 mg daily. 10.Namenda 10 mg twice a day. 11.Nystatin cream. 12.MiraLAX 17 g daily as needed. 13.Pravachol 20 mg at bedtime. 14.Seroquel 12.5 mg at bedtime. 15.Exelon patch. History And Physical [address] [place]. [address] NAME: REZA RAGLAND : 40 STATUS : ADM Murali PAT#: [id number] AGE: 75 ADM/REG DATE : 07/02/16 MR#: [id number] REPORT SERV DATE: 07/03/16 DICTATED BY: MALIHA MORRISON DATE: 07/02/16 REPORT STATUS : Draft TRANSCRIBED BY: ABDIFATAH DATE: 07/02/16 16.Zoloft 50 mg at dinner. 17.[place] Thyroid 90 mg daily. 18.Spiriva inhale daily. 19.Demadex 5 mg every other day. 20.Ultram p.r.n. 21.Mucomyst nebulizers. PHYSICAL EXAMINATION: VITAL SIGNS: Temperature 97.0, pulse 92, blood pressure 104/64, respiratory rate 18, and O2 saturation 98% on 3 L nasal cannula. GENERAL: A chronically ill-appearing female, debilitated, no evidence of acute distress. HEENT: Pupils equal, round, and reactive to light. No conjunctival pallor. No scleral icterus. Nares are patent. Oropharynx is clear of obstruction. Dry mucous membranes. NECK: Trachea midline. No thyromegaly. LYMPH: No cervical lymphadenopathy. No supraclavicular lymphadenopathy. RESPIRATORY: The patient does have crackles at the base of lungs, scattered rhonchi, "congestion" and rhonchi in the upper chest in particular. No rales. The patient has a nonlabored respiratory effort though. CARDIOVASCULAR: Regular rate and rhythm. No murmurs, rubs, or gallops. No current extremity edema is appreciated. ABDOMEN: Diffusely tender by exam, but nonfocal. No rebound. No guarding. Nondistended. Active bowel sounds. No hepatosplenomegaly. DERMATOLOGICAL: Warm and dry extremities. No pallor. No cyanosis. PSYCHIATRIC: A flat affect. Irritable mood. She is alert, but poorly oriented to details of time, although she is oriented to location and her recent history. LABORATORY DATA: White blood cell count 8.3, hemoglobin 10, hematocrit 30, and platelets 219. Sodium 138, potassium 5.4, chloride 101, bicarb 31, BUN 92, creatinine 2.36 from baseline creatinine of 1.5, and albumin 2.7. Liver enzymes within normal limits. STUDIES: 1. Chest x-ray by my own evaluation shows atelectasis changes, may be slight increase compared to 06/20/2016 chest x-ray. 2. EKG by my own evaluation shows sinus rhythm, premature ventricular contractions, widening of the QRS complex, left axis deviation. 3. CT scan of the chest reviewed from 06/17/2016 showed atelectasis versus pneumonia at the base of lungs. ASSESSMENT AND PLAN: 1. Acute kidney injury. Place on IV fluids. Hold Demadex. Dehydration from vomiting and diarrhea is the most likely cause. 2. Recurrent aspiration. Place on Mucomyst nebulizers, Duo nebulizers. Provide History And Physical [address] [address] NAME: REZA RAGLAND : 40 STATUS : ADM Murali PAT#: [id number] AGE: 75 ADM/REG DATE : 07/02/16 MR#: [id number] REPORT SERV DATE: 07/03/16 DICTATED BY: MALIHA MORRISON DATE: 07/02/16 REPORT STATUS : Draft TRANSCRIBED BY: ABDIFATAH DATE: 07/02/16 supportive care. Check procalcitonin. 3. Progressive paraplegia. Case Management consult. Question whether the patient would be best served to go to rehab? 4. Diarrhea. Check Clostridium difficile. Check stools. Because of abdominal pain, we would like to check a CT scan of the abdomen and pelvis to rule out active colitis? 5. History of positive antinuclear antibodies. Question whether this could be related to the patient's gradual deterioration. Check CYN titer again. Check ESR. Check complement levels. 6. Chronic systolic congestive heart failure. Ejection fraction 35%. Monitor closely. 7. Dementia. KPL/MODL Maliha Morrison M.D. / [id number] CC: Abilio Ramos M.D.
[~2016-07-02 19:56] MED LIST changes: +ATV1 PEG; +PROCTOZONE HC 2.5% PR
[2016-07-02 20:57] LABS: BASOPHILS 0.2 %; BASOPHILS ABSOLUTE 0.02 10/3/uL (0.0-0.16); EOSINOPHILS 2.1 %; EOSINOPHILS ABSOLUTE 0.17 10/3/uL (0.0-0.53); HEMATOCRIT 30.5 % (36.0-48.0); HEMOGLOBIN 10.1 g/dL (12.0-16.0); IMMATURE GRANULOCYTES 0.2 %; IMMATURE GRANULOCYTES ABSOLUTE 0.02 10/3/uL (0.0-0.11); LYMPHOCYTES ABSOLUTE 2.07 10/3/uL (0.67-4.30); MEAN CORPUS HGB CONC 33.1 g/dL (32.0-36.0); MEAN CORPUSCULAR HEMOGLOB 30.1 pg (26.0-34.0); MEAN PLATELET VOLUME 10.5 fL (9.2-13.0); MONOCYTES 8.7 %; MONOCYTES ABSOLUTE 0.72 10/3/uL (0.21-1.20); NEUTROPHILS 63.8 %; NEUTROPHILS ABSOLUTE 5.27 10/3/uL (2.02-8.40); RBC DISTRIBUTION WIDTH 16.4 % (12.0-16.0); RED CELL COUNT 3.35 10/6/uL (4.0-5.6); WHITE BLOOD CELLS 8.3 10/3/uL (4.5-10.5)
[2016-07-02 20:58] LABS: MANUAL DIFF NO %; PLATELET COUNT 219 10/3/uL (150-400)
[2016-07-02 21:16] LABS: CHLORIDE, SERUM 101 MMOL/L (96-112); CO2 (CARBON DIOXIDE) 31 MMOL/L (24-34); POTASSIUM, SERUM 5.4 MMOL/L (3.5-5.3); SGOT(AST) 28 U/L (5-40); SGPT(ALT) 18 U/L (5-65); SODIUM, SERUM 138 MMOL/L (135-148); TOTAL BILIRUBIN 0.3 MG/DL (0-1.2); TOTAL PROTEIN 7.8 G/DL (6.0-8.5)
[2016-07-02 21:17] LABS: A/G RATIO 0.5 (0.7-1.9); ALBUMIN 2.7 G/DL (3.5-5.0); ALKALINE PHOSPHATASE 114 U/L (45-117); BUN (BLOOD UREA NITROGEN) 92 MG/DL (6-23); CREATININE 2.36 MG/DL (0.55-1.02); GFR AFRICAN AMERICAN 23 ML/MIN (>=60); GFR NON AFRICAN AMERICAN 19 ML/MIN (>=60); GLOBULIN 5.1 G/DL (2.5-4.1); GLUCOSE, SERUM 78 MG/DL (60-99)
[2016-07-03 06:53] LABS: BASOPHILS 0.2 %; BASOPHILS ABSOLUTE 0.01 10/3/uL (0.0-0.16); EOSINOPHILS 2.6 %; EOSINOPHILS ABSOLUTE 0.14 10/3/uL (0.0-0.53); HEMATOCRIT 27.4 % (36.0-48.0); IMMATURE GRANULOCYTES 0.2 %; IMMATURE GRANULOCYTES ABSOLUTE 0.01 10/3/uL (0.0-0.11); LYMPHOCYTES 31.1 %; MANUAL DIFF NO %; MEAN CORPUS HGB CONC 32.8 g/dL (32.0-36.0); MEAN CORPUSCULAR HEMOGLOB 30.2 pg (26.0-34.0); MEAN CORPUSCULAR VOLUME 91.9 fL (80-100); MEAN PLATELET VOLUME 9.9 fL (9.2-13.0); MONOCYTES 6.8 %; MONOCYTES ABSOLUTE 0.37 10/3/uL (0.21-1.20); NEUTROPHILS 59.1 %; NEUTROPHILS ABSOLUTE 3.24 10/3/uL (2.02-8.40); PLATELET COUNT 182 10/3/uL (150-400); RBC DISTRIBUTION WIDTH 16.3 % (12.0-16.0); RED CELL COUNT 2.98 10/6/uL (4.0-5.6); WHITE BLOOD CELLS 5.5 10/3/uL (4.5-10.5)
[2016-07-03 06:55] LABS: INTERNATIONAL NORMAL RATI 1.2 UNITS (-); PROTIME (NOT ORD) 15.5 SEC (12.0-14.5)
[2016-07-03 07:11] LABS: PARTIAL THROMBO TIME 31.6 SEC (22.5-37.2)
[2016-07-03 07:17] LABS: A/G RATIO 0.5 (0.7-1.9); ALBUMIN 2.3 G/DL (3.5-5.0); CALCIUM, SERUM 8.5 MG/DL (8.5-10.4); CHLORIDE, SERUM 106 MMOL/L (96-112); CO2 (CARBON DIOXIDE) 28 MMOL/L (24-34); COMPLEMENT C3 97 MG/DL (75-161); CPK 26 U/L (0-200); CREATININE 2.06 MG/DL (0.55-1.02); GFR AFRICAN AMERICAN 27 ML/MIN (>=60); GFR NON AFRICAN AMERICAN 23 ML/MIN (>=60); GLOBULIN 4.3 G/DL (2.5-4.1); POTASSIUM, SERUM 4.7 MMOL/L (3.5-5.3); SGOT(AST) 24 U/L (5-40); SGPT(ALT) 17 U/L (5-65); SODIUM, SERUM 140 MMOL/L (135-148); TOTAL BILIRUBIN 0.3 MG/DL (0-1.2); TOTAL PROTEIN 6.6 G/DL (6.0-8.5); TROPONIN I <0.02 NG/ML (<0.05)
[2016-07-03 07:19] LABS: ALKALINE PHOSPHATASE 96 U/L (45-117); BUN (BLOOD UREA NITROGEN) 88 MG/DL (6-23); CK-MB 0.8 NG/ML; GLUCOSE, SERUM 119 MG/DL (60-99)
[2016-07-03 08:03] LABS: SED RATE 96 MM/HR (0-20)
[2016-07-03 15:10] LABS: PROCALCITONIN < 0.05 ng/mL (<0.5)
[2016-07-03 15:26] LABS: C-REACTIVE PROTEIN 8.8 MG/L (<8.0)
[2016-07-04 05:17] LABS: BASOPHILS 0.4 %; BASOPHILS ABSOLUTE 0.02 10/3/uL (0.0-0.16); EOSINOPHILS 5.8 %; HEMATOCRIT 27.6 % (36.0-48.0); IMMATURE GRANULOCYTES 0.2 %; IMMATURE GRANULOCYTES ABSOLUTE 0.01 10/3/uL (0.0-0.11); LYMPHOCYTES 33.7 %; LYMPHOCYTES ABSOLUTE 1.75 10/3/uL (0.67-4.30); MEAN CORPUS HGB CONC 32.6 g/dL (32.0-36.0); MEAN CORPUSCULAR HEMOGLOB 30.4 pg (26.0-34.0); MEAN CORPUSCULAR VOLUME 93.2 fL (80-100); MEAN PLATELET VOLUME 10.1 fL (9.2-13.0); MONOCYTES 8.7 %; MONOCYTES ABSOLUTE 0.45 10/3/uL (0.21-1.20); NEUTROPHILS 51.2 %; NEUTROPHILS ABSOLUTE 2.67 10/3/uL (2.02-8.40); PLATELET COUNT 171 10/3/uL (150-400); RBC DISTRIBUTION WIDTH 16.5 % (12.0-16.0); RED CELL COUNT 2.96 10/6/uL (4.0-5.6); WHITE BLOOD CELLS 5.2 10/3/uL (4.5-10.5)
[2016-07-04 05:20] LABS: MANUAL DIFF NO %
[2016-07-04 05:28] LABS: ALBUMIN 2.2 G/DL (3.5-5.0); CALCIUM, SERUM 8.5 MG/DL (8.5-10.4); CHLORIDE, SERUM 108 MMOL/L (96-112); CO2 (CARBON DIOXIDE) 28 MMOL/L (24-34); CREATININE 1.68 MG/DL (0.55-1.02); GFR AFRICAN AMERICAN 34 ML/MIN (>=60); GFR NON AFRICAN AMERICAN 29 ML/MIN (>=60); PHOSPHORUS, SERUM 4.1 MG/DL (2.5-4.5); POTASSIUM, SERUM 4.9 MMOL/L (3.5-5.3); SODIUM, SERUM 141 MMOL/L (135-148)
[2016-07-04 05:29] LABS: BUN (BLOOD UREA NITROGEN) 74 MG/DL (6-23); GLUCOSE, SERUM 79 MG/DL (60-99)
[2016-07-04 10:40] LABS: ANA PATTERN SPECKLED
[2016-07-05 05:06] LABS: BASOPHILS 0.1 %; BASOPHILS ABSOLUTE 0.01 10/3/uL (0.0-0.16); EOSINOPHILS 2.3 %; EOSINOPHILS ABSOLUTE 0.17 10/3/uL (0.0-0.53); HEMATOCRIT 27.7 % (36.0-48.0); HEMOGLOBIN 8.9 g/dL (12.0-16.0); IMMATURE GRANULOCYTES 0.1 %; IMMATURE GRANULOCYTES ABSOLUTE 0.01 10/3/uL (0.0-0.11); LYMPHOCYTES 22.6 %; LYMPHOCYTES ABSOLUTE 1.71 10/3/uL (0.67-4.30); MEAN CORPUS HGB CONC 32.1 g/dL (32.0-36.0); MEAN CORPUSCULAR HEMOGLOB 30.1 pg (26.0-34.0); MEAN CORPUSCULAR VOLUME 93.6 fL (80-100); MEAN PLATELET VOLUME 10.6 fL (9.2-13.0); MONOCYTES ABSOLUTE 0.45 10/3/uL (0.21-1.20); NEUTROPHILS 68.9 %; PLATELET COUNT 178 10/3/uL (150-400); RBC DISTRIBUTION WIDTH 16.3 % (12.0-16.0); RED CELL COUNT 2.96 10/6/uL (4.0-5.6)
[2016-07-05 05:09] LABS: MANUAL DIFF NO %; WHITE BLOOD CELLS 7.6 10/3/uL (4.5-10.5)
[2016-07-05 05:17] LABS: BUN (BLOOD UREA NITROGEN) 63 MG/DL (6-23); CALCIUM, SERUM 8.7 MG/DL (8.5-10.4); CHLORIDE, SERUM 106 MMOL/L (96-112); CO2 (CARBON DIOXIDE) 28 MMOL/L (24-34); CREATININE 1.58 MG/DL (0.55-1.02); GFR AFRICAN AMERICAN 37 ML/MIN (>=60); GFR NON AFRICAN AMERICAN 32 ML/MIN (>=60); GLUCOSE, SERUM 134 MG/DL (60-99); POTASSIUM, SERUM 4.8 MMOL/L (3.5-5.3); SODIUM, SERUM 137 MMOL/L (135-148)
[2016-07-05 11:54] LABS: ASCORBIC ACID (UR NOT ORDER) 40 (NEG); BILIRUBIN, URINE NEGATIVE (NEG); KETONE, URINE NEGATIVE (NEG); LEUKOCYTE ESTERASE(NOT OR LARGE (NEG); WBC (NOT ORDERED) (RFLEX) 14 (0-5)
[2016-07-06 06:58] LABS: BASOPHILS 0.1 %; BASOPHILS ABSOLUTE 0.01 10/3/uL (0.0-0.16); EOSINOPHILS 2.5 %; EOSINOPHILS ABSOLUTE 0.18 10/3/uL (0.0-0.53); HEMATOCRIT 28.6 % (36.0-48.0); HEMOGLOBIN 9.2 g/dL (12.0-16.0); IMMATURE GRANULOCYTES 0.3 %; IMMATURE GRANULOCYTES ABSOLUTE 0.02 10/3/uL (0.0-0.11); LYMPHOCYTES 22.7 %; LYMPHOCYTES ABSOLUTE 1.64 10/3/uL (0.67-4.30); MEAN CORPUS HGB CONC 32.2 g/dL (32.0-36.0); MEAN CORPUSCULAR HEMOGLOB 29.8 pg (26.0-34.0); MEAN CORPUSCULAR VOLUME 92.6 fL (80-100); MEAN PLATELET VOLUME 10.1 fL (9.2-13.0); MONOCYTES 9.3 %; MONOCYTES ABSOLUTE 0.67 10/3/uL (0.21-1.20); NEUTROPHILS 65.1 %; NEUTROPHILS ABSOLUTE 4.69 10/3/uL (2.02-8.40); PLATELET COUNT 179 10/3/uL (150-400); RBC DISTRIBUTION WIDTH 16.3 % (12.0-16.0); RED CELL COUNT 3.09 10/6/uL (4.0-5.6); WHITE BLOOD CELLS 7.2 10/3/uL (4.5-10.5)
[2016-07-06 07:08] LABS: A/G RATIO 0.5 (0.7-1.9); ALBUMIN 2.2 G/DL (3.5-5.0); ALKALINE PHOSPHATASE 97 U/L (45-117); CALCIUM, SERUM 9.2 MG/DL (8.5-10.4); CHLORIDE, SERUM 105 MMOL/L (96-112); CO2 (CARBON DIOXIDE) 28 MMOL/L (24-34); CREATININE 1.38 MG/DL (0.55-1.02); GFR AFRICAN AMERICAN 43 ML/MIN (>=60); GFR NON AFRICAN AMERICAN 37 ML/MIN (>=60); GLOBULIN 4.7 G/DL (2.5-4.1); GLUCOSE, SERUM 130 MG/DL (60-99); POTASSIUM, SERUM 4.8 MMOL/L (3.5-5.3); SGOT(AST) 21 U/L (5-40); SGPT(ALT) 16 U/L (5-65); SODIUM, SERUM 140 MMOL/L (135-148); TOTAL BILIRUBIN 0.3 MG/DL (0-1.2); TOTAL PROTEIN 6.9 G/DL (6.0-8.5)
[2016-07-06 07:09] LABS: BUN (BLOOD UREA NITROGEN) 58 MG/DL (6-23); MANUAL DIFF NO %; PHOSPHORUS, SERUM 3.1 MG/DL (2.5-4.5)
[2016-07-07 06:07] LABS: BASOPHILS 0.2 %; BASOPHILS ABSOLUTE 0.01 10/3/uL (0.0-0.16); EOSINOPHILS 2.1 %; EOSINOPHILS ABSOLUTE 0.13 10/3/uL (0.0-0.53); HEMATOCRIT 27.8 % (36.0-48.0); IMMATURE GRANULOCYTES 0.2 %; IMMATURE GRANULOCYTES ABSOLUTE 0.01 10/3/uL (0.0-0.11); LYMPHOCYTES 33.1 %; LYMPHOCYTES ABSOLUTE 2.01 10/3/uL (0.67-4.30); MEAN CORPUS HGB CONC 32.4 g/dL (32.0-36.0); MEAN CORPUSCULAR HEMOGLOB 29.8 pg (26.0-34.0); MEAN CORPUSCULAR VOLUME 92.1 fL (80-100); MEAN PLATELET VOLUME 10.2 fL (9.2-13.0); MONOCYTES 8.7 %; MONOCYTES ABSOLUTE 0.53 10/3/uL (0.21-1.20); NEUTROPHILS 55.7 %; NEUTROPHILS ABSOLUTE 3.38 10/3/uL (2.02-8.40); PLATELET COUNT 176 10/3/uL (150-400); RBC DISTRIBUTION WIDTH 16.4 % (12.0-16.0); RED CELL COUNT 3.02 10/6/uL (4.0-5.6); WHITE BLOOD CELLS 6.1 10/3/uL (4.5-10.5)
[2016-07-07 06:10] LABS: MANUAL DIFF NO %
[2016-07-07 06:18] LABS: BUN (BLOOD UREA NITROGEN) 58 MG/DL (6-23); CALCIUM, SERUM 9.2 MG/DL (8.5-10.4); CHLORIDE, SERUM 101 MMOL/L (96-112); CO2 (CARBON DIOXIDE) 27 MMOL/L (24-34); GFR AFRICAN AMERICAN 39 ML/MIN (>=60); GFR NON AFRICAN AMERICAN 34 ML/MIN (>=60); GLUCOSE, SERUM 112 MG/DL (60-99); POTASSIUM, SERUM 4.6 MMOL/L (3.5-5.3); SODIUM, SERUM 136 MMOL/L (135-148)
[2016-07-07 06:56] LABS: SED RATE 120 MM/HR (0-20)
[2016-07-08 05:12] LABS: BUN (BLOOD UREA NITROGEN) 63 MG/DL (6-23); CALCIUM, SERUM 9.4 MG/DL (8.5-10.4); CHLORIDE, SERUM 102 MMOL/L (96-112); CO2 (CARBON DIOXIDE) 27 MMOL/L (24-34); CREATININE 1.49 MG/DL (0.55-1.02); GFR AFRICAN AMERICAN 39 ML/MIN (>=60); GFR NON AFRICAN AMERICAN 34 ML/MIN (>=60); GLUCOSE, SERUM 161 MG/DL (60-99); SODIUM, SERUM 135 MMOL/L (135-148)
[2016-07-09 10:02] LABS: BASOPHILS 0.2 %; BASOPHILS ABSOLUTE 0.01 10/3/uL (0.0-0.16); EOSINOPHILS 0.2 %; EOSINOPHILS ABSOLUTE 0.01 10/3/uL (0.0-0.53); HEMOGLOBIN 9.7 g/dL (12.0-16.0); IMMATURE GRANULOCYTES 0.2 %; IMMATURE GRANULOCYTES ABSOLUTE 0.01 10/3/uL (0.0-0.11); LYMPHOCYTES 35.6 %; LYMPHOCYTES ABSOLUTE 1.91 10/3/uL (0.67-4.30); MEAN CORPUS HGB CONC 32.3 g/dL (32.0-36.0); MEAN CORPUSCULAR HEMOGLOB 29.7 pg (26.0-34.0); MEAN CORPUSCULAR VOLUME 91.7 fL (80-100); MEAN PLATELET VOLUME 10.6 fL (9.2-13.0); MONOCYTES 11.7 %; MONOCYTES ABSOLUTE 0.63 10/3/uL (0.21-1.20); NEUTROPHILS 52.1 %; PLATELET COUNT 188 10/3/uL (150-400); RED CELL COUNT 3.27 10/6/uL (4.0-5.6); WHITE BLOOD CELLS 5.4 10/3/uL (4.5-10.5)
[2016-07-09 10:05] LABS: MANUAL DIFF NO %
[2016-07-09 10:15] LABS: BUN (BLOOD UREA NITROGEN) 66 MG/DL (6-23); CALCIUM, SERUM 9.5 MG/DL (8.5-10.4); CHLORIDE, SERUM 103 MMOL/L (96-112); CO2 (CARBON DIOXIDE) 31 MMOL/L (24-34); CREATININE 1.53 MG/DL (0.55-1.02); GFR AFRICAN AMERICAN 38 ML/MIN (>=60); GFR NON AFRICAN AMERICAN 33 ML/MIN (>=60); POTASSIUM, SERUM 4.4 MMOL/L (3.5-5.3); SODIUM, SERUM 138 MMOL/L (135-148)
[2016-07-09 10:18] LABS: GLUCOSE, SERUM 82 MG/DL (60-99)
[2016-07-09 19:32] LABS: PROCALCITONIN 0.05 ng/mL (<0.5)
[2016-07-10] MEDS ORDERED: VITAMIN D400 UNI1 PEG (10:36)
[2016-07-10] MEDS ORDERED: FESO4UDL PEG (10:37)
[2016-07-10] MEDS ORDERED: ZOFRAN ODT4 MG PEG (10:44)
[2016-07-10] MEDS ORDERED: P20 PO (10:46)
[2016-07-10] MEDS ORDERED: FLORASTOR250 MG PEG (10:50)
[2016-08-02] MEDS ORDERED: ISORDIL10 PEG (18:25)
[2016-08-02] MEDS ORDERED: COZ25 PEG (18:25)
[2016-08-02] MEDS ORDERED: PR12.5 PEG (18:26)
[2016-08-02] MEDS ORDERED: BACTROINT TOP (18:26)
[2016-08-08] MEDS ORDERED: THY60 PEG (09:32)
[2016-08-08] MEDS ORDERED: P20 PEG (09:34)
== END 2016-07-10 14:36 | disposition home health service (06) | DRG 682 ==
LOC: ER 19:56 → 7NO 22:02
PROVIDERS: Family Medicine; Hospitalist; Internal Medicine
PROC: 0D2DXUZ Change Feeding Device in Lower Intestinal Tract, External Approach (ICD-10-PCS; principal; 2016-07-09)
DX: N17.9 Acute kidney failure, unspecified (principal); J69.0 Pneumonitis due to inhalation of food and vomit; G93.41 Metabolic encephalopathy; J96.11 Chronic respiratory failure with hypoxia; R64 Cachexia; K94.13 Enterostomy malfunction; G82.20 Paraplegia, unspecified; I50.22 Chronic systolic (congestive) heart failure; N39.0 Urinary tract infection, site not specified; F03.90 Unspecified dementia, unspecified severity, without behavioral disturbance, psychotic disturbance, mood disturbance, and anxiety; J44.9 Chronic obstructive pulmonary disease, unspecified; R13.10 Dysphagia, unspecified; N18.3 Chronic kidney disease, stage 3 (moderate); E03.9 Hypothyroidism, unspecified; R19.7 Diarrhea, unspecified; I48.2 Chronic atrial fibrillation; E55.9 Vitamin D deficiency, unspecified; D63.8 Anemia in other chronic diseases classified elsewhere; R62.7 Adult failure to thrive; Y84.8 Other medical procedures as the cause of abnormal reaction of the patient, or of later complication, without mention of misadventure at the time of the procedure; Z79.82 Long term (current) use of aspirin; Z99.81 Dependence on supplemental oxygen; Z95.810 Presence of automatic (implantable) cardiac defibrillator; Z85.89 Personal history of malignant neoplasm of other organs and systems; Z86.14 Personal history of Methicillin resistant Staphylococcus aureus infection; Z98.890 Other specified postprocedural states; Z88.8 Allergy status to other drugs, medicaments and biological substances; Z83.3 Family history of diabetes mellitus; Z80.0 Family history of malignant neoplasm of digestive organs
CPT/HCPCS: 49452; 70450; 71010; 71250; 74176; 80048; 80053; 80069; 81001; 82306; 82550; 82553; 82962; 83605; 83735; 83880; 84100; 84145; 84443; 84484; 85025; 85610; 85652; 85730; 86039; 86140; 86160; 87040; 87045; 87046; 87046-59; 87070; 87077; 87086; 87150; 87186; 87205; 87328; 87329; 87493; 87493-59; 87899; 87899-59; 89055; 93005; 94640; 94668; 99285; A9270-GY; C1769; J1956; Q9967